=== PATIENT | male | born 1990 | race Two or more races ===

== ENCOUNTER 2018-12-24 04:29 | Emergency (ER) | payer OTHER ==
[~2018-12-24] VITALS: Ht 162.6 cm; Wt 70.3 kg
[~2018-12-24 04:29] MED LIST: CEPH-264 PO; PROVENTIL HFA6.7 G2 INH
[2018-12-24 04:40] VITALS: BP 142/91
[2018-12-24] MEDS ORDERED: DEXAMETHASONE 4 MG TABLET PO ONE (05:15)
[2018-12-24] MEDS ORDERED: IPRATRPIUM/ALBUTEROL 0.5/2.5MG 3 ML NEBU. NEB ONE (05:15)
--- NOTE | 2018-12-24 05:17 | PHYS DOC ---
Past Medical History Past Medical History: No Pertinent History Past Surgical History: No Surgical History Smoking: Second-hand Alcohol Use: Occasionally Drug Use: None Adult General Chief Complaint Chief Complaint: SHORTNESS OF BREATH HPI HPI Mr. Haq is a 28yo M w/ no significant PMH presents w/ shortness of breath that began 1 hour ago. Patient denies strenuous activity or new environmental exposure. Feels as though they can't get a deep enough breath. Reports having a non-productive cough. Denies lightheadedness, dizziness, sore throat, or chest pain. Was previously seen in the ED for similar symptoms experienced 1 month ago. Breathing treatment helped at that time and patient has since follow-up with their PCP. Daily inhaled corticosteroid with albuterol PRN. Took inhalers today and has only had mild improvement in symptoms. Review of Systems Review of Systems Constitutional: Denies fever or chills Eyes: Denies redness or eye pain HENT: Denies nasal congestion or sore throat Respiratory: Reports non-productive cough and shortness of breath Cardiovascular: Denies chest pain or palpitations GI: Denies abdominal pain, nausea, vomiting, diarrhea, constipation, or hematochezia : Denies dysuria or hematuria Musculoskeletal: Denies back pain or joint pain Integument: Denies rash or skin lesions Neurologic: Denies headache, focal weakness or sensory changes Complete systems were reviewed and found to be within normal limits, except as documented in this note. Current Medications Current Medications Current Medications Medications (Trade) Dose Ordered Sig/Jillian Start Time Stop Time Status Last Admin Dose Admin Albuterol/ Ipratropium (Duoneb) 3 ml 1X ONCE 12/24/18 05:15 12/24/18 05:16 DC 12/24/18 05:45 3 ML Dexamethasone (Decadron) 10 mg 1X ONCE 12/24/18 05:15 12/24/18 05:16 DC 12/24/18 05:29 10 MG Allergies Allergies Allergies Coded Allergies Type Severity Reaction Last Updated Verified No Known Drug Allergies 11/26/18 No Physical Exam Physical Exam Constitutional: Well developed, well nourished, no acute distress, non-toxic appearance HENT: Normocephalic, atraumatic, oropharynx moist Eyes: PERRL, EOMI, conjunctiva normal, no discharge Neck: Normal range of motion, no tenderness, supple, no cervical or supraclavicu lar LAD Cardiovascular: Heart rate normal, regular rhythm w/o gallops, rubs, or murmurs Lungs & Thorax: b/l mild wheezing heard throughout all lung culver Abdomen: Soft, no tenderness, non-distended Skin: Warm, dry, no erythema, no rash Back: No tenderness, no CVA tenderness Extremities: No tenderness, ROM intact, no edema Neurologic: Alert and oriented X 3, normal motor function, normal sensory function, no focal deficits noted Psychologic: Affect normal, judgement normal, mood normal Current Patient Data Vital Signs Vital Signs Date Time Temp Pulse Resp B/P (MAP) Pulse Ox O2 Delivery O2 Flow Rate FiO2 12/24/18 05:46 100 Room Air 12/24/18 05:00 100 20 12/24/18 04:40 97.8 142/91 (108) 97.8 EKG EKG EKG obtained @ 0439 and read @ 0447. Sinus tachycardia, [address]- elevation.[] Radiology/Procedures Radiology/Procedures CXR: Preliminary read by ED physician reveals no acute processes noted. [] Course & Med Decision Making Course & Med Decision Making Pertinent Labs and Imaging studies reviewed. (See chart for details) Patient presented w/ shortness of breath. CXR negative per ED physician preliminary read. Breathing treatment (Duoneb) and dexamethasone administered. Patient stable for discharge with outpatient follow-up with PCP. Discussed findings and plan with patient and family, who acknowledge understanding and agreement. [] Dragon Disclaimer Dragon Disclaimer This electronic medical record was generated, in whole or in part, using a voice recognition dictation system. Departure Departure Impression: Primary Impression: Bronchitis Disposition: ADMITTED INPATIENT Condition: STABLE Referrals: NO PCP (PCP) ANGIE KENDALL MD Patient Instructions: Acute Bronchitis, [id number] Scripts Prednisone (PREDNISONE) 20 Mg Tablet 2 TAB PO DAILY, #8 TAB Prov: LEATHA DELGADO DO 12/24/18 Albuterol Sulfate (PROAIR HFA INHALER) 8.5 Gm Hfa.aer.ad 1 PUFF INH PRN Q6HRS PRN for WHEEZING, #1 INHALER 0 Refills Prov: LEATHA DELGADO DO 12/24/18 LEATHA DELGADO DO Dec 24, 2018 05:17
[2018-12-24] MEDS ORDERED: ALBU2.5V8 INH (05:56)
[2018-12-24] MEDS ORDERED: PRED20TA PO (05:56)
--- NOTE | 2018-12-24 09:10 | RAD ---
CHEST PA LATERAL History: Shortness of air Comparison: Two-view chest November 26, 2018. Findings: The cardiomediastinal silhouette is normal. Pulmonary vasculature is normal. The lungs are clear. No pleural effusion or pneumothorax is seen. There is no acute bone abnormality. IMPRESSION: No acute cardiopulmonary process. Electronically signed by: Justino Farmer MD (12/24/2018 9:07 AM) [facility]
--- NOTE | 2018-12-26 09:24 | EKG ---
[facility] [address] [place] [address] Test Date: 2018-12-24 Test Time: 04:39:48 Pat Name: CONNIE GRAVES Department: Room: Gender: M Belt Tender: : 1990 Requested By: LEATHA DELGADO Order Number: [id number] Reading MD: Measurements Intervals [place] Rate: 101 P: 72 SD: 120 QRS: 75 QRSD: 94 T: 49 QT: 322 QTc: 418 Interpretive Statements SINUS TACHYCARDIA NO SPECIFIC ECG ABNORMALITIES RI6.01 No previous ECG available for comparison
== END 2018-12-24 06:32 | disposition home or self-care (01) ==
LOC: ER 04:29
DX: J40 Bronchitis, not specified as acute or chronic (principal); Z77.22 Contact with and (suspected) exposure to environmental tobacco smoke (acute) (chronic)
CPT/HCPCS: 71046; 93005; 94640; 99284; J7620; J8540